=== PATIENT | female | born 2000 | race Caucasian/White ===

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

== ENCOUNTER 2021-12-02 17:07 | Emergency (ER) | payer BC ==
[2021-12-02] MEDS ORDERED: Lidocaine 1% 5 ML VIAL ONE (17:36)
[2021-12-02] MEDS ORDERED: Bacitracin/Neomycin/Polymyxin B Oint 0.9 GM U/D Packet TOP ONE (18:53)
[2021-12-02] MEDS ORDERED: Ibuprofen 600 MG Tab PO ONE (18:54)
== END 2021-12-02 19:15 | disposition home or self-care (01) ==
LOC: KA.ED 17:07
DX: S61.211A Laceration without foreign body of left index finger without damage to nail, initial encounter (principal); W23.1XXA Caught, crushed, jammed, or pinched between stationary objects, initial encounter
CPT/HCPCS: 12002; 99282-25; 99283; A9270-GY